=== PATIENT | female | born 1950 | race Caucasian/White ===

== ENCOUNTER 2017-01-25 10:44 | Outpatient (CLI) | payer MEDICARE, OTHER | END 2017-01-25 10:45 | disposition home or self-care (01) | DX: E03.2 Hypothyroidism due to medicaments and other exogenous substances (principal); E55.9 Vitamin D deficiency, unspecified; R53.83 Other fatigue; M25.50 Pain in unspecified joint ==

== ENCOUNTER 2018-12-05 15:24 | Outpatient (CLI) | payer MEDICARE, OTHER ==
--- NOTE | 2018-12-06 08:40 | Mammography Report ---
Reason: SCREENING MAMMO Procedure Date: 12/05/2018 Accession Number: [id number] / [id number] Procedure: BONIFACIO - Screening Mammo w/Amadeo CPT Code: FULL RESULT: EXAM: Screening Mammo w/Amadeo DATE: 12/05/2018 3:57 PM CLINICAL HISTORY: Screening encounter. 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 TECHNIQUE: Bilateral CC and MLO views were obtained. COMPARISON: 11/23/2014 through 12/23/2009. FINDINGS: The breasts demonstrate heterogeneously dense fibroglandular parenchyma bilaterally. No suspicious masses, clustered microcalcifications, or regions of architectural distortion are identified. IMPRESSION: Negative examination RECOMMENDATION: Routine annual screening unless otherwise clinically indicated. BIRADS CATEGORY 1: Negative STANDARD QUALIFYING STATEMENTS: 1. This examination was not reviewed with the aid of Computer-Aided Detection (CAD). 2. A negative or benign imaging report should not preclude biopsy if clinically suspicious findings are present. 3. Dense breasts may obscure an underlying neoplasm. 4. This examination was reviewed with the aid of 3D breast imaging (tomosynthesis).
== END 2018-12-05 15:25 | disposition home or self-care (01) ==
LOC: DI 15:24
PROVIDERS: ATTEND Nurse Practitioner Family
DX: Z12.31 Encounter for screening mammogram for malignant neoplasm of breast (principal)
CPT/HCPCS: 77063; 77067

== ENCOUNTER 2019-11-07 10:18 | Outpatient (CLI) | payer MEDICARE, OTHER ==
--- NOTE | 2019-11-09 09:13 | DEXA Report ---
Reason: OSTEOPOROSIS Procedure Date: 11/07/2019 Accession Number: [id number] / [id number] Procedure: DEX - Dexa Spine and/or Hip CPT Code: Final Report FULL RESULT: EXAM: Dexa Spine and/or Hip DATE: 11/07/2019 10:37 AM CLINICAL HISTORY: OSTEOPOROSIS TECHNIQUE: Dual energy x-ray absorptiometry (DXA) was performed on a Cloudmeter System. Regions measured are the AP Spine, femoral neck, and if needed forearm. COMPARISON: None. In accordance with the International Society for Clinical Densitometry (ISCD) guidelines, data from previous exams may be reanalyzed using current recommendations and techniques. This is done to allow a more accurate basis for comparison with the current study. FINDINGS: The data for the lumbar spine is as follows: BMD (g/cm/cm) T-SCORE Z-SCORE REGION L1 1.041 -0.7 0.8 L2 1.160 -0.3 1.2 L3 1.292 0.8 2.3 L4 1.277 0.6 2.2 TOTAL 1.200 0.2 1.8 NOTE: All evaluable vertebrae are used for classification The data for the hip is as follows: BMD (g/cm/cm) T-SCORE Z-SCORE REGION Neck 0.888 -1.1 0.6 TOTAL 0.875 -1.1 0.4 NOTE: The femoral neck or total proximal femur, whichever is lowest, is used for classification. IMPRESSION: THE WHO CLASSIFICATION BASED ON THE INTERNATIONAL REFERENCE STANDARD IS OSTEOPENIA. THE FRACTURE RISK IS INCREASED. RECOMMENDATION: Patients with diagnosis of osteoporosis or osteopenia should have regular bone mineral density assessment. For those eligible for Medicare, routine testing is allowed once every 2 years. Testing frequency can be increased for patients who have rapidly progressing disease or for those who are receiving medical therapy to restore bone mass. COMMENT: World Health Organization (WHO) definitions for osteoporosis and osteopenia: NORMAL BMD: T-score at -1.0 or higher, fracture risk is low OSTEOPENIA BMD: T-score between -1.0 and -2.5, fracture risk is increased. OSTEOPOROSIS BMD: T-score at -2.5 or lower, fracture risk is high. National Osteoporosis Foundation recommends: 1. Obtain adequate dietary calcium (at least 1200 mg per day) and vitamin D (400-800 international units per day). 2. Participate, as appropriate, in regular weightbearing and muscle-strengthening exercise. 3. Avoid tobacco use and reduce alcohol and caffeine intake. 4. For more detailed information see the website at www.NOF.org.
== END 2019-11-07 10:19 | disposition home or self-care (01) ==
LOC: DI 10:18
PROVIDERS: ATTEND Registered Nurse
DX: M85.88 Other specified disorders of bone density and structure, other site (principal)
CPT/HCPCS: 77080

== ENCOUNTER 2020-08-12 09:57 | Outpatient (CLI) | payer MEDICARE, OTHER ==
--- NOTE | 2020-08-13 08:44 | Ultrasound Report ---
LIMITED ULTRASOUND OF LEFT BREAST: 08/12/2020 CLINICAL: Focal left breast pain. Comparison is made to exams dated: 08/12/2020 mammogram, 12/05/2018 mammogram, 09/15/2012 mammogram, 09/2011 mammogram, and 12/23/2009 mammogram - [facility]. Ultrasound of was performed on the area of interest. IMPRESSION: NEGATIVE There is no sonographic evidence of malignancy. There is no mammographic or sonographic abnormality seen in the left breast to correspond with the pa in, however, clinical followup is recommended. A 1 year screening mammogram is recommended. This exam was interpreted at Station ID: [id number]. Electronically Signed By: Mary reaves/danisha:08/12/2020 11:18:35 Ultrasound BI-RADS: 1 Negative BI-RADS CATEGORY: (1) - 1 RECOMMENDATION: (ANNUAL) - Recommend routine annual screening mammography. [id number] 1 year screening LATERALITY: (B)
--- NOTE | 2020-08-13 08:44 | Mammography Report ---
BILATERAL DIGITAL DIAGNOSTIC MAMMOGRAM 3D/2D: 08/12/2020 CLINICAL: Occasional left breast pain. Comparison is made to exams dated: 12/05/2018 mammogram, 09/15/2012 mammogram, 01/16/2011 mammogram, an d 12/23/2009 mammogram - [facility]. The tissue of both breasts is heterogeneously dense. This may lower the sensitivity of mammography. No significant masses, calcifications, or other findings are seen in either breast. IMPRESSION: INCOMPLETE: NEEDS ADDITIONAL IMAGING EVALUATION There is no mammographic abnormality seen in the left breast to correspond with the pain, however, ta rgeted ultrasound of the left breast is recommended and will be performed immediately following this exam. This exam was interpreted at Station ID: [id number]. NOTE: For mammograms, a report in lay terms will be sent to the patient. Approximately 15% of breast malignancies will not be visualized mammographically. In the management of a palpable breast mass, a negative mammogram must not discourage biopsy of a clinically suspicious lesion. Electronically Signed By: Mary Akhtar M.D. lk/:08/12/2020 10:51:08 ACR BI-RADS Category 0: Incomplete 3340F PARENCHYMAL PATTERN: (D) - The breast(s) demonstrate(s) heterogeneously dense fibroglandular cortney hernandez. BI-RADS CATEGORY: (0) - 0 Ultrasound [id number] Immediate follow-up LATERALITY: (B)
== END 2020-08-12 09:58 | disposition home or self-care (01) ==
LOC: DI 09:57
PROVIDERS: ATTEND Nurse Practitioner Family
DX: N64.4 Mastodynia (principal)
CPT/HCPCS: 76642; 77066

== ENCOUNTER 2020-08-12 10:14 | Outpatient (CLI) | payer MEDICARE, OTHER ==
--- NOTE | 2020-08-12 17:42 | XRAY Report ---
PROCEDURE: Cervical Spine 2 View INDICATIONS: PARESTHESIA OF SKIN TECHNIQUE: 2 view(s) of the cervical spine were acquired. COMPARISON: None. FINDINGS: Bones: No fractures or dislocations to the T2 level. There is mild, approximately 2 mm of C5-C6 ante rolisthesis. The lateral masses of C1 appear intact on the odontoid view. No suspicious bony lesions moderate C6-C7 and C7-T1 degenerative disc disease. Mild C2-C3, C3-C4, C4-C5 and C5-C6 degenerative disc disease. Moderate C2-C3, C3-C4, C4-C5, C5-C6, C6-C7 and C7-T1 facet arthropathy. Moderate bilate ral C5-C6 and C6-C7 uncovertebral joint hypertrophy. Soft tissues: No prevertebral soft tissue swelling. IMPRESSION: 1. Multilevel degenerative disease. 2. Multilevel facet arthropathy. 3. No fracture. No acute osseous lesion. If there is continued clinical concern for pathology, then M RI should be considered for further evaluation. Reviewed by: Katy Johnson MD, PhD on 08/12/2020 5:41 PM PDT Approved by: Katy Johnson MD, PhD on 08/12/2020 5:41 PM PDT Station ID: [id number]
--- NOTE | 2020-08-12 17:43 | XRAY Report ---
PROCEDURE: Thoracic Spine 2 View INDICATIONS: PARESTHESIA OF SKIN TECHNIQUE: 3 views of the thoracic spine were acquired. COMPARISON: None. FINDINGS: Bones: No fractures or dislocations. No suspicious bony lesions. 12 pairs of ribs are noted, and a ppear intact where visualized. Mild degenerative disc changes noted throughout the thoracic spine. Soft tissues: No paravertebral stripe thickening. IMPRESSION: 1. Multilevel degenerative disease. 2. No fracture. No acute osseous lesion. If there is continued clinical concern for pathology, then M RI should be considered for further evaluation. Reviewed by: Katy Johnson MD, PhD on 08/12/2020 5:41 PM PDT Approved by: Katy Johnson MD, PhD on 08/12/2020 5:41 PM PDT Station ID: [id number]
== END 2020-08-12 10:15 | disposition home or self-care (01) ==
LOC: DI 10:14
PROVIDERS: ATTEND Nurse Practitioner Family
DX: M50.31 Other cervical disc degeneration, high cervical region (principal); M51.34 Other intervertebral disc degeneration, thoracic region; R20.2 Paresthesia of skin; N64.4 Mastodynia
CPT/HCPCS: 72040; 72070; 76642; 77066

== ENCOUNTER 2021-08-28 09:52 | Outpatient (CLI) | payer MEDICARE, OTHER ==
--- NOTE | 2021-08-29 09:01 | Ultrasound Report ---
LIMITED ULTRASOUND OF LEFT BREAST: 08/28/2021 CLINICAL: Focal left breast pain. Comparison is made to exams dated: 08/28/2021 mammogram, 08/12/2020 ultrasound, 08/12/2020 mammogram, and 12/05/2018 mammogram - [facility]. Real-time ultrasound of the left breast 3-4 o'clock region was performed. Sosa scale images of the r eal-time examination were reviewed. No significant abnormalities were seen sonographically in the left breast in the region of focal pain . IMPRESSION: NEGATIVE There is no sonographic evidence of malignancy. A 1 year screening mammogram is recommended. Exam findings were conveyed to the patient. Patient is advised to monitor for significant change. Cli nical follow-up as needed. This exam was interpreted at Station ID: [id number]. Electronically Signed By: Garo Linn M.D. slc/:08/28/2021 11:13:10 Ultrasound BI-RADS: 1 Negative BI-RADS CATEGORY: (1) - 1 RECOMMENDATION: (ANNUAL) - Recommend routine annual screening mammography. [id number] 1 year screening LATERALITY: (B)
--- NOTE | 2021-08-29 09:01 | Mammography Report ---
BILATERAL DIGITAL DIAGNOSTIC MAMMOGRAM 3D/2D: 08/28/2021 CLINICAL: Focal left breast pain. Comparison is made to exams dated: 08/12/2020 ultrasound, 08/12/2020 mammogram, 12/05/2018 mammogram, a nd 09/15/2012 mammogram - [facility]. The tissue of both breasts is extremely dense , which lowers the sensitivity of mammography. No significant masses, calcifications, or other findings are seen in either breast. IMPRESSION: INCOMPLETE: NEEDS ADDITIONAL IMAGING EVALUATION No mammographic evidence of malignancy. A targeted ultrasound for focal pain is recommended and will immediately follow. This exam was interpreted at Station ID: [id number]. NOTE: For mammograms, a report in lay terms will be sent to the patient. Approximately 15% of breast malignancies will not be visualized mammographically. In the management of a palpable breast mass, a negative mammogram must not discourage biopsy of a clinically suspicious lesion. Electronically Signed By: Garo Linn M.D. slc/:08/28/2021 11:12:15 ACR BI-RADS Category 0: Incomplete 3340F PARENCHYMAL PATTERN: (VD) - The breast(s) demonstrate(s) extremely dense parenchyma, limiting the sen sitivity of mammography. BI-RADS CATEGORY: (0) - 0 Ultrasound [id number] Immediate follow-up LATERALITY: (B)
== END 2021-08-28 09:53 | disposition home or self-care (01) ==
LOC: DI 09:52
PROVIDERS: ATTEND Nurse Practitioner Family
DX: N64.4 Mastodynia (principal); R92.8 Other abnormal and inconclusive findings on diagnostic imaging of breast

== ENCOUNTER 2023-07-08 08:18 | Outpatient (CLI) | payer MEDICARE, OTHER ==
--- NOTE | 2023-07-09 16:12 | Mammography Report ---
BILATERAL DIGITAL DIAGNOSTIC MAMMOGRAM 3D/2D WITH EXAGGERATED CC: 07/08/2023 CLINICAL: Diffuse left breast pain. Due for bilateral. Comparison is made to exams dated: 08/28/2021 mammogram and 08/12/2020 mammogram - [facility]. Both breasts are extremely dense, which lowers the sensitivity of mammography (category d />75% gland ular tissue). No significant masses, calcifications, or other findings are seen in either breast. IMPRESSION: NEGATIVE There is no mammographic abnormality seen in the left breast to correlate with reported history of di ffuse left breast pain, however, recommend clinical follow up for persistent or worsening symptoms, o r development of any clinically suspicious findings. Recommend screening mammogram in one year. Findings and recommendations were conveyed to the patient during today's evaluation. Based on the Tyrer Cuzick model (a risk assessment model) the patients lifetime risk is 8.5% and her 10 year risk is 7.7%. According to the ACR, ACS, and NCCN guidelines, an annual breast MRI exam steffen g with mammogram is recommended if the patients lifetime risk is 20% or greater. This exam was interpreted at Station ID: [id number]. NOTE: For mammograms, a report in lay terms will be sent to the patient. Approximately 15% of breast malignancies will not be visualized mammographically. In the management of a palpable breast mass, a negative mammogram must not discourage biopsy of a clinically suspicious lesion. Electronically Signed By: Perry Hdz M.D. aty/:07/08/2023 09:15:49 ACR BI-RADS Category 1: Negative 3341F PARENCHYMAL PATTERN: (VD) - The breast(s) demonstrate(s) extremely dense parenchyma, limiting the sen sitivity of mammography. BI-RADS CATEGORY: (1) - 1 Mammogram [id number] 1 year screening LATERALITY: (B)
== END 2023-07-08 08:19 | disposition home or self-care (01) ==
LOC: DI 08:18
PROVIDERS: ATTEND Nurse Practitioner Family
DX: N64.4 Mastodynia (principal)

== ENCOUNTER 2024-01-18 08:00 | Outpatient (CLI) | payer MEDICARE, OTHER ==
--- NOTE | 2024-01-18 21:12 | XRAY Report ---
PROCEDURE: Knee 4 View BILAT INDICATIONS: BILAT KNEE PAIN TECHNIQUE: 5 views of the knee(s) were acquired. COMPARISON: None. FINDINGS: Bones: No fractures or dislocations. Bilateral severe medial and moderate lateral and patellofemora l compartment joint space narrowing and juxta-articular osteophytosis. There is [id number] in the m edial compartment. There are multiple large bodies within a Lomeli's cyst in the right knee and an int ra-articular body within a Lomeli's cyst in the left knee. Left suprapatellar intra-articular body. We ll-defined round loose body in the posterior joint space of the left tibiofemoral joint. No suspiciou s bony lesions. Soft tissues: Small bilateral knee joint effusions. No suspicious soft tissue calcifications or jocelin s. IMPRESSION: 1.No acute bony abnormality. 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 3.Multiple large bodies within a Lomeli's cyst, notably in the right knee. 4.Left knee demonstrate suprapatellar and posterior tibiofemoral intra-articular bodies. Reviewed by: Darling Delaney MD on 01/18/2024 9:11 PM PDT Approved by: Darling Delaney MD on 01/18/2024 9:11 PM PDT Station ID: [id number]
== END 2024-01-18 23:59 | disposition home or self-care (01) ==
LOC: DI.WOS 08:00
PROVIDERS: ATTEND Orthopaedic Surgery
DX: M17.0 Bilateral primary osteoarthritis of knee (principal); M71.21 Synovial cyst of popliteal space [Baker], right knee; M23.42 Loose body in knee, left knee

== ENCOUNTER 2024-07-11 08:00 | Outpatient (CLI) | payer MEDICARE, OTHER | END 2024-07-11 23:59 | disposition home or self-care (01) | LOC: LAB.S 08:00 | PROVIDERS: ATTEND Registered Nurse | DX: R30.0 Dysuria (principal) | CPT/HCPCS: 87077; 87086; 87181 ==